=== PATIENT | male | born 1975 | race Caucasian/White ===

== ENCOUNTER 2019-02-02 19:54 | Inpatient (IN) | payer OTHER ==
[2019-02-02 20:46] VITALS: BMI 20.7
--- NOTE | 2019-02-02 21:36 | HP ---
COWS - Scale Resting Pulse: 1= TN 81-100 Sweatin= Chills/Flushing Restless Observation: 1= Difficult to Sit Still Pupil Size: 1= Pupils >than Normal Bone or Joint Aches: 1= Mild Discomfort Runny Nose/ Eye Tearin= Nasal Congestion GI Upset > 30mins: 2= Nausea/Diarrhea Tremor Observation: 1= Tremor [place], Not Seen Yawning Observation: 1= 1-2x During Session Anxiety or Irritability: 1=Feels Anxious/Irritable Goose Flesh Skin: 3=Piloerection COWS Score: 14 CIWA Score - Admission Criteria [facility] Guidelines: Admission for Medically Managed Detox: Requires at least one of the followin. CIWA greater than 12 2. Seizures within the past 24 hours 3. Delirium tremens within the past 24 hours 4. Hallucinations within the past 24 hours 5. Acute intervention needed for co occurring medical disorder 6. Acute intervention needed for co occurring psychiatric disorder 7. Severe withdrawal that cannot be handled at a lower level of care (continued vomiting, continued diarrhea, abnormal vital signs) requiring intravenous medication and/or fluids 8. Admission ROS [facility] Chief Complaint: heroin detox Allergies/Adverse Reactions: Allergies Allergy/AdvReac Type Severity Reaction Status Date / Time Penicillins Allergy Intermediate Hives Verified 07/11/15 15:11 History of Present Illness: 43 yo with pre-diabetes- no meds, HCV- cured?, asthma, PTSD, polysubstance use- heroin, K2, cocaine, occ alcohol, xanax. Started using drugs at age 19. Does not work. Says he has been in detox, does not remember when. He states he is homeless. sleeps in the street Pt states not using any meds and does not want any meds while here. Refused nicotine replacement heroin- 1-2 bundles/day, IV, last OD- 5 years, has no narcan kit, last use today. K2- as much he can> puts him to sleep Cocaine- IV 1 gram/day alcohol- once a week xanax- once a week DUR- no meds Utox- THC, Johan, mop, oxy, MTD, BZO - Ebola screening Have you traveled outside of the country in the last 21 days: No (N) Have you had contact with anyone from an Ebola affected area: No Do you have a fever: No - Review of Systems Constitutional: No Symptoms Reported EENT: reports: No Symptoms Reported Respiratory: reports: No Symptoms reported Cardiac: reports: No Symptoms Reported GI: reports: No Symptoms Reported : reports: No Symptoms Reported Musculoskeletal: reports: No Symptoms Reported Integumentary: reports: No Symptoms Reported Neuro: reports: Tingling (both arms) Endocrine: reports: No Symptoms Reported Hematology: reports: No Symptoms Reported Psychiatric: reports: No Sypmtoms Reported Other Systems: Reviewed and Negative Patient History - Patient Medical History Hx Anemia: No Hx Asthma: Yes (ALBUTEROL INHALER) Hx Chronic Obstructive Pulmonary Disease (COPD): No Hx Cancer: No Hx Cardiac Disorders: No Hx Congestive Heart Failure: No Hx Hypertension: No Hx Hypercholesterolemia: No Hx Pacemaker: No HX Cerebrovascular Accident: No Hx Seizures: No Hx Dementia: No Hx Diabetes: No Hx Gastrointestinal Disorders: No Hx Liver Disease: No Hx Genitourinary Disorders: No Hx Sexually Transmitted Disorders: No Hx Renal Disease (ESRD): No Hx Thyroid Disease: No Hx Human Immunodeficiency Virus (HIV): No (LAST TEST 2014) Hx Hepatitis C: Yes (DX 2009 DENIES TXMENT) Hx Depression: Yes (ON MEDS) Hx Suicide Attempt: Yes (2009 ATTEMPTED TO HANG SELF) Hx Bipolar Disorder: No Hx Schizophrenia: Yes (ON MEDS) - Patient Surgical History Past Surgical History: No Hx Neurologic Surgery: No Hx Cataract Extraction: No Hx Cardiac Surgery: No Hx Lung Surgery: No Hx Breast Surgery: No Hx Breast Biopsy: No Hx Abdominal Surgery: No Hx Appendectomy: No Hx Cholecystectomy: No Hx Genitourinary Surgery: No Hx Section: No Hx Orthopedic Surgery: No Hx Hysterectomy: (MALE) Anesthesia Reaction: No - PPD History Date: 07/13/15 - Smoking Cessation Smoking history: Current every day smoker Have you smoked in the past 12 months: Yes Aproximately how many cigarettes per day: 20 Hx Chewing Tobacco Use: No Initiated information on smoking cessation: Yes 'Breaking Loose' booklet given: 02/02/19 - Substances abused Heroin Substance route: Inhalation Frequency: Daily Amount used: 12 to 15 bags Age of first use: 11 Date of last use: 02/02/19 Cocaine Substance route: Injection Frequency: Daily Amount used: $100 Age of first use: 11 Date of last use: 02/02/19 Alcohol Substance route: Oral Frequency: Daily Amount used: 1/2 pint Age of first use: 11 Date of last use: 02/01/19 Family Disease History - Family Disease History Family Disease History: CA: Mother (BREAST), Other: Father (ESTRANGED) Admission Physical Exam [facility] - Vital Signs Vital Signs: Vital Signs - 24 hr 02/02/19 20:33 Temperature 100.5 F H Pulse Rate 68 Respiratory 19 Rate Blood Pressure 121/87 - Physical General Appearance: Yes: Moderate Distress, Thin HEENTM: Yes: Within Normal Limits, Hearing grossly Normal Respiratory: Yes: Within Normal Limits, Lungs Clear Neck: Yes: Within Normal Limits Cardiology: Yes: Within Normal Limits, Regular Rhythm, Regular Rate Abdominal: Yes: Within Normal Limits, Normal Bowel Sounds Back: Yes: Within Normal Limits, Normal Inspection Musculoskeletal: Yes: Within Normal Limits, Gait Steady Extremities: Yes: Within Normal Limits Neurological: Yes: Within Normal Limits, Fully Oriented Integumentary: Yes: Within Normal Limits Lymphatic: Yes: Within Normal Limits - Diagnostic (1) Cocaine use disorder Current Visit: Yes Status: Acute (2) Opioid dependence with withdrawal Current Visit: No Status: Acute (3) Asthma Current Visit: No Status: Chronic Qualifiers: Asthma severity: mild intermittent Asthma complication type: uncomplicated (4) Cannabis dependence, uncomplicated Current Visit: No Status: Chronic (5) Nicotine dependence, uncomplicated Current Visit: No Status: Chronic Qualifiers: Nicotine product type: cigarettes Qualified Code(s): F17.210 - Nicotine dependence, cigarettes, uncomplicated (6) HCV (hepatitis C virus) Current Visit: Yes Status: Acute Breathalyzer - Breathalyzer Breathalyzer: 0 Urine Drug Screen - Test Device Lot number: [id number] Expiration date: 10/23/20 - Control Is test valid?: Yes - Results Drug screen NEGATIVE: No Urine drug screen results: THC-Marijuana, JOHAN-Cocaine, MOP-Opiates, OXY- Oxycodone, MTD-Methadone, BZO-Benzodiazepines Inpatient Rehab Admission - Rehab Decision to Admit Inpatient rehab admission?: No
[2019-02-02] MEDS ORDERED: ONDANSETRON *ODT* 4 MG TABLET SL PRN (21:43)
[2019-02-02] MEDS ORDERED: METHOCARBAMOL 500 MG TABLET PO PRN (21:43)
[2019-02-02] MEDS ORDERED: IBUPROFEN 400 MG TABLET (FP) PO PRN (21:43)
[2019-02-02] MEDS ORDERED: hydrOXYzine PAMOATE 25 MG CAPSULE (FP) PO PRN (21:43)
[2019-02-02] MEDS ORDERED: MAGNESIUM CITRATE 300 ML BOTTLE PO PRN (21:43)
[2019-02-02] MEDS ORDERED: ACETAMINOPHEN 325 MG TABLET (FP) PO PRN ×2 (21:43)
[2019-02-02] MEDS ORDERED: NALOXONE HCL 0.4 MG/ML VIAL IM PRN (21:43)
[2019-02-02] MEDS ORDERED: MELATONIN 5 MG TABLETS PO PRN (21:43)
[2019-02-02] MEDS ORDERED: MAG HYDROX/AL HYDROX/SIMETH 30 ML UNIT-DOSE CUP PO PRN (21:43)
[2019-02-02] MEDS ORDERED: MENTHOL/PHENOL 1 EACH UD MM PRN (21:43)
[2019-02-02] MEDS ORDERED: BISMUTH SUBSALICYLATE 524 MG/30 ML UD PO PRN (21:43)
[2019-02-02] MEDS ORDERED: cloNIDine HCL 0.1 MG TABLET PO PRN (21:43)
[2019-02-02] MEDS ORDERED: clonazePAM 0.5 MG TABLET PO PRN (21:43)
[2019-02-02] MEDS ORDERED: METHADONE HCL 10 MG TABLET (FOR DETOX USE ONLY) PO ONE (21:43)
[2019-02-02] MEDS ORDERED: MAGNESIUM HYDROX 2400MG/30ML ORAL SUSPENSION 30 ML CUP PO PRN (21:43)
[2019-02-02] MEDS ORDERED: THIAMINE HCL 100 MG TABLET (FP) PO SCH (22:00)
[2019-02-03 07:39] VITALS: BP 124/67; PULSE 53; TEMP 98.4
--- NOTE | 2019-02-03 09:24 | PN ---
[facility] Progress Note Note: pt arrived in withdrawals on admission. today pt c/o of withdrawals s/s and aggressive symptomatic management attempted. however, pt in spite of extensive motivational counseling regarding OD, seizures, relapse, loss pt chose to sign out AMA.
--- NOTE | 2019-02-03 09:30 | DS ---
[facility] Detox Discharge Summary Admission Date: 02/02/19 - History Present History: Cannabis Dependence, Cocaine Dependence, Opioid Dependence - Physical Exam Results Vital Signs: Vital Signs Temperature 98.4 F 02/03/19 07:38 Pulse Rate 53 L 02/03/19 07:38 Respiratory Rate 17 02/03/19 07:38 Blood Pressure 124/67 02/03/19 07:38 O2 Sat by Pulse Oximetry (%) Pertinent Admission Physical Exam Findings: pt arrived in withdrawals yesterday today pt continue to feel uncomfortable however, pt did not want to remain in detox and or receive any aftercare referrals. pt insisted on stating he is from the [place] and not from [place] and does not want to be here. pt was very anxious and was stating if he doesn't leave now he will break down the lockers and walk off. Security was called and all his belongings provided and escorted off the unit. pt did not hesitate to leave pt did not want any referrals however d/c papers given. - Treatment Hospital Course: Discharged Condition Good Patient has Accepted a Rehab Referral to: pt refused any aftercare. - Medication Discharge Medications: Ambulatory Orders Albuterol Sulfate Inhaler - [Ventolin HFA Inhaler -] 1 - 2 inh PO Q4H PRN Fluoxetine HCl [Prozac -] 20 mg PO DAILY #30 capsule 07/12/15 Risperidone [Risperdal -] 2 mg PO HS #30 tablet 07/12/15 traZODone HCL [Desyrel -] 100 mg PO HS #30 tablet 07/12/15 - Diagnosis (1) Cocaine use disorder Status: Chronic (2) HCV (hepatitis C virus) Status: Chronic Qualifiers: Viral hepatitis chronicity: chronic Hepatic coma status: without hepatic coma Qualified Code(s): B18.2 - Chronic viral hepatitis C (3) Opioid dependence with withdrawal Status: Chronic (4) Asthma Status: Chronic Qualifiers: Asthma severity: mild Asthma complication type: uncomplicated (5) Cannabis dependence, uncomplicated Status: Chronic (6) Nicotine dependence, uncomplicated Status: Chronic Qualifiers: Nicotine product type: cigarettes Qualified Code(s): F17.210 - Nicotine dependence, cigarettes, uncomplicated (7) Schizoaffective disorder Status: Chronic Qualifiers: Schizoaffective disorder type: unspecified Qualified Code(s): F25.9 - Schizoaffective disorder, unspecified - AMA Did Patient Leave Against Medical Advice: Yes
[2019-02-03] MEDS ORDERED: PRENATAL VITAMINS W/ FOLIC ACID TABLET (FP) PO SCH (10:00)
[2019-02-03] MEDS ORDERED: METHADONE (DETOX) 20 MG, METHADONE (DETOX) 5 MG PO ONE (10:00)
[2019-02-04] MEDS ORDERED: METHADONE HCL 10 MG TABLET (FOR DETOX USE ONLY) PO ONE (10:00)
[2019-02-05] MEDS ORDERED: METHADONE (DETOX) 10 MG, METHADONE (DETOX) 5 MG PO ONE (10:00)
[2019-02-06] MEDS ORDERED: METHADONE HCL 10 MG TABLET (FOR DETOX USE ONLY) PO ONE (10:00)
[2019-02-07] MEDS ORDERED: METHADONE HCL 5 MG TABLET (FOR DETOX USE ONLY) PO ONE (06:00)
== END 2019-02-03 08:39 | disposition left against medical advice (07) | DRG 770 ==
LOC: YASAS 19:54 → Y6N 22:18
PROVIDERS: ADMIT Surgery; ATTEND Surgery
PROC: HZ2ZZZZ Detoxification Services for Substance Abuse Treatment (ICD-10-PCS; principal; 2019-02-02)
DX: F11.23 Opioid dependence with withdrawal (principal); F14.20 Cocaine dependence, uncomplicated; F12.20 Cannabis dependence, uncomplicated; F17.210 Nicotine dependence, cigarettes, uncomplicated; F25.9 Schizoaffective disorder, unspecified; J45.909 Unspecified asthma, uncomplicated; B18.2 Chronic viral hepatitis C; R73.03 Prediabetes; Z88.0 Allergy status to penicillin; Z91.5 Personal history of self-harm